=== PATIENT | male | born 1990 | race Caucasian/White ===

== ENCOUNTER 2017-10-01 10:48 | Emergency (ER) | payer MEDICAID ==
[2017-10-01 11:48] VITALS: BP 108/65
[2017-10-01] MEDS ORDERED: HYDROcod/ACETAM 5/325 MG TABLET PO STA (12:32)
[2017-10-01] MEDS ORDERED: HYDROcod/ACETAM 5/325 MG TABLET ONE (12:40)
--- NOTE | 2017-10-01 12:45 | ED Physician Documentation ---
PD HPI HEENT - Stated complaint Stated Complaint: TOOTH PX - Chief complaint Chief Complaint: Heent - History obtained from History obtained from: Patient - History of Present Illness Timing - onset: How many weeks ago (2) Timing - duration: Weeks (2) Timing - details: Gradual onset, Still present Location: Tooth Improves: Nothing Worsens: Everything Associated symptoms: Fever, Headache Similar symptoms before: Diagnosis (bad tooth) Recently seen: Not recently seen - Additional information Additional information: 26-year-old male has had a broken carious tooth for some time and over the past 2 weeks this is been bothering him more and more. Today he is beside himself in pain and unable to think. He is in tears. Review of Systems Constitutional: reports: Fever, Chills Eyes: denies: Decreased vision Ears: reports: Ear pain Nose: reports: Congestion Throat: reports: Dental pain / toothache Respiratory: reports: Cough GI: reports: Nausea. denies: Vomiting : denies: Dysuria Skin: denies: Rash Musculoskeletal: denies: Neck pain, Back pain, Extremity pain PD PAST MEDICAL HISTORY - Past Medical History Past Medical History: No - Past Surgical History Past Surgical History: No - Present Medications Home Medications: Ambulatory Orders Medication Instructions Recorded Confirmed Clindamycin HCl [Clindamycin 300MG 300 mg PO QID #28 capsule 10/01/17 CAP] HYDROcod/ACETAM 5/325 [[place] 5/325] 1 - 2 ea PO Q6H PRN #15 tablet 10/01/17 - Allergies Allergies/Adverse Reactions: Allergies Allergy/AdvReac Type Severity Reaction Status Date / Time Penicillins Allergy Unknown Verified 10/01/17 11:01 - Social History Does the pt smoke?: Yes Smoking Status: Current every day smoker Does the pt drink ETOH?: Yes Does the pt have substance abuse?: No - Immunizations Immunizations are current?: No Immunizations: TDAP >10years/unknown, Other immun not current PD ED PE NORMAL - Vitals Vital signs reviewed: Yes (Tachycardic and hypertensive) - General General: Well developed/nourished, Other (The patient is curled in the position crying and clutching the side of his face.) - HEENT HEENT: Atraumatic, PERRL, EOMI, Other (There is most of the inside of #14 missing and there is debris in the cavity hole. This is removed and the cavity is rinsed and covered with Cavitt.) - Neck Neck: Supple, no meningeal sign, No bony TTP - Cardiac Cardiac: RRR, No murmur - Respiratory Respiratory: No respiratory distress, Clear bilaterally - Abdomen Abdomen: Soft, Non tender - Back Back: No CVA TTP, No spinal TTP - Derm Derm: Normal color, Warm and dry, No rash - Extremities Extremities: No deformity, No edema - Neuro Neuro: No motor deficit, No sensory deficit Eye Opening: Spontaneous Motor: Obeys Commands Verbal: Oriented GCS Score: 15 - Psych Psych: Other (Mood is withdrawn and the affect is flat) PD ED PE EXPANDED - HEENT HEENT Visual: 1 - abscess, tenderness Results - Vitals Vitals: Oxygen O2 Source Room air PD MEDICAL DECISION MAKING - ED course Complexity details: re-evaluated patient, considered differential, d/w patient, d/w family ED course: 26-year-old male with a carious left upper molar is in so much pain that he is given pain medication here in the emergency department and is able to cooperate and with examination we are able to rinse the broken tooth and cover the defect with Cavitt. He is placed on some antibiotic and we will give him some pain medication. Departure - Departure Disposition: 01 Home, Self Care Clinical Impression: Dental abscess Condition: Stable Instructions: ED Abscess Dental Follow-Up: [facility] [Provider Group] Prescriptions: Clindamycin HCl [Clindamycin 300MG CAP] 300 mg PO QID #28 capsule HYDROcod/ACETAM 5/325 [[place] 5/325] 1 - 2 ea PO Q6H PRN #15 tablet PRN Reason: Pain Discharge Date/Time: 10/01/17 13:28
== END 2017-10-01 13:28 | disposition home or self-care (01) ==
LOC: ED 10:48
DX: K04.7 Periapical abscess without sinus (principal); K02.9 Dental caries, unspecified; F17.200 Nicotine dependence, unspecified, uncomplicated
CPT/HCPCS: 99283; A9270

== ENCOUNTER 2018-08-20 19:27 | Emergency (ER) | payer MEDICAID ==
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
[2018-08-20] MEDS ORDERED: ACETAMINOPHEN 325 MG TABLET PO STA (21:10)
[2018-08-20] MEDS ORDERED: IBUPROFEN 600 MG TABLET PO STA (21:10)
[2018-08-20 21:32] VITALS: BP 127/72
== END 2018-08-20 21:32 | disposition home or self-care (01) ==
LOC: ED 19:27
DX: S62.367A Nondisplaced fracture of neck of fifth metacarpal bone, left hand, initial encounter for closed fracture (principal); W21.11XA Struck by baseball bat, initial encounter; F17.200 Nicotine dependence, unspecified, uncomplicated
CPT/HCPCS: 29125; 99282; 99283

== ENCOUNTER 2018-11-25 15:04 | Emergency (ER) | payer MEDICAID ==
[2018-11-25 15:09] VITALS: BP 125/78
--- NOTE | 2018-11-25 15:54 | XRAY Report ---
Reason: coughing blood Procedure Date: 11/25/2018 Accession Number: [id number] / [id number] Procedure: XR - Chest 2 View X-Ray CPT Code: 95865 FULL RESULT: EXAM: CHEST RADIOGRAPHY EXAM DATE: 11/25/2018 03:41 PM. CLINICAL HISTORY: Coughing blood. COMPARISON: None. TECHNIQUE: 2 views. FINDINGS: Lungs/Pleura: No focal opacities evident. No pleural effusion. No pneumothorax. Normal volumes. Mediastinum: Heart and mediastinal contours are unremarkable. Other: None. IMPRESSION: No acute cardiopulmonary abnormalities identified. RADIA
--- NOTE | 2018-11-25 16:00 | ED Physician Documentation ---
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 denies: Chest pain / pressure Respiratory: reports: Dyspnea, Cough, Hemoptysis GI: denies: Abdominal Pain, Nausea, Vomiting, Diarrhea, Bloody / black stool Musculoskeletal: denies: Extremity swelling Endocrine: denies: Easy bruising / bleeding Immunocompromised: denies: Immunocompromised PD PAST MEDICAL HISTORY - Past Surgical History Past Surgical History: No - Present Medications Home Medications: Ambulatory Orders Medication Instructions Recorded Confirmed No Known Home Medications 08/20/18 11/25/18 - Allergies Allergies/Adverse Reactions: Allergies Allergy/AdvReac Type Severity Reaction Status Date / Time Penicillins Allergy Unknown Verified 11/25/18 15:09 - Social History Does the pt smoke?: Yes Smoking Status: Current every day smoker Does the pt drink ETOH?: Yes Does the pt have substance abuse?: Yes - Immunizations Immunizations are current?: No Immunizations: Other immun not current - POLST Patient has POLST: No PD ED PE NORMAL - Vitals Vital signs reviewed: Yes - General General: Alert and oriented X 3 - HEENT HEENT: PERRL, Moist mucous membranes, Other (no bleeding sites in mouth) - Neck Neck: Supple, no meningeal sign - Cardiac Cardiac: RRR - Respiratory Respiratory: No respiratory distress, Clear bilaterally - Abdomen Abdomen: Soft, Non tender - Derm Derm: Other (questionable track molina L AC, no petechhiae or purpura) - Extremities Extremities: No tenderness to palpate, No edema - Neuro Neuro: Alert and oriented X 3 Results - Vitals Vitals: Vital Signs - 24 hr 11/25/18 15:06 Temperature 36.6 C Heart Rate 115 H Respiratory 18 Rate Blood Pressure 125/78 O2 Saturation 100 Oxygen O2 Source Room air - Labs Labs: Laboratory Tests 0111/25/18 11/25/18 16:08 16:08 16:08 WBC 2.4 L RBC 2.58 L Hgb 9.3 L Hct 26.4 L MCV 102.2 H MCH 36.1 H MCHC 35.3 RDW 16.2 H Plt Count 7 L* MPV 7.9 Neut # (Auto) Not Reportable Lymph # (Auto) Not Reportable [place] # (Auto) Not Reportable Eos # (Auto) Not Reportable Baso # (Auto) Not Reportable Absolute Nucleated RBC Not Reportable Total Counted 100 Band Neuts % (Manual) 6 Abnorm Lymph % (Manual) 0 Nucleated RBC % Not Reportable Neutrophils # (Manual) 0.3 L* Lymphocytes # (Manual) 1.9 Monocytes # (Manual) 0.1 Eosinophils # (Manual) 0.0 Basophils # (Manual) 0.0 Differential Comment MANUAL DIFFERENTIAL Manual Slide Review Indicated WBC Morphology NORMAL APPEARANCE Platelet Estimate DECREASED (<130,000) Platelet Morphology NORMAL APPEARANCE RBC Morph Micro Appear 1+ MACROCYTOSIS Sodium 135 Potassium 3.6 Chloride 97 L Carbon Dioxide 28 Anion Gap 10.0 BUN 17 Creatinine 1.4 H Estimated GFR (MDRD) 61 L Glucose 150 H Lactic Acid 1.7 Calcium 8.6 - Rads (name of study) CXR Radiology: See rad report (NACPD) PD MEDICAL DECISION MAKING - ED course ED course: CXR neg pt tachy and appears ill concern for septic PE among other ddx ordered labs and CTPA labs notable for profound pancytopenia with ANC 0.3 and plt 7K chem notable for neg lactate and renal insuff got one set of blood cx pt did not get to to CTPA or get other blood cx before he decided to leave he wants to leave AMA I went and spoke to the pt at length he states he is homeless and needs to go take care of his dog and secure his tent and other gear and then he will come back I explained i was very very concerned about him - that his labs were critically abnormal, that all kinds of things could be wrong ranging from cancer to infection among others I explained that if he left he might bleed to , might have worsening infection or cancer, might have irreparable damage, might lose his present life style and could very certainly pt listened to me carefully he was awake alert does not seem to be intoxicated was able to verbalize my concerns and I feel he has capacity to understand my concerns he still wants to leave AMA states he will call EMS for a ride back after he takes care of things I asked if there was family I could call and talk to and he says no I begged him to stay and let me take care of him and he still insists on leaving but promises to come back so he signed out AMA and left I gave him a mask and asked him to wear it on the bus he lives at [facility] [facility] - if he has not come back by tomorrow I will request a welfare check on him I was very clear that we want to take care of him, that we are not mad, that we hope he comes back very soon - he says he will Departure - Departure Disposition: Against Medical Advice Clinical Impression: Hemoptysis, Pancytopenia, Renal insufficiency Condition: Serious Discharge Date/Time: 11/25/18 17:02
[2018-11-25] MEDS ORDERED: IOVERSOL 320 100 ML VIAL IVP ONE (16:05)
[2018-11-25 16:17] LABS: BASOPHILS % (AUTO) 0.2 %; HGB - HEMOGLOBIN 9.3 g/dL (14.0-18.0); LYMPHOCYTES % (AUTO) 80.2 %; MEAN CORPUSCULAR HEMOGLOBIN 36.1 pg (27.0-31.0); MEAN CORPUSCULAR HGB CONC 35.3 g/dL (32.0-36.0); MEAN CORPUSCULAR VOLUME 102.2 fL (80.0-94.0); MEAN PLATELET VOLUME 7.9 fL (7.4-11.4); MONOCYTES % (AUTO) 3.7 %; NEUTROPHILS % (AUTO) 14.9 %; RED BLOOD COUNT 2.58 10^6/uL (4.70-6.10); RED CELL DISTRIBUTION WIDTH 16.2 % (12.0-15.0); WHITE BLOOD COUNT 2.4 x10^3/uL (4.8-10.8)
[2018-11-25 16:41] LABS: PLT - PLATELET COUNT 7 10^3/uL (130-450)
[2018-11-25 16:42] LABS: ABNORMAL LYMPHS % (MANUAL) 0 %
[2018-11-25 16:43] LABS: CALCIUM 8.6 mg/dL (8.5-10.3); CREATININE 1.4 mg/dL (0.6-1.2)
[2018-11-25 16:49] LABS: BAND NEUTROPHILS % (MANUAL) 6 %; LYMPHOCYTES # (MANUAL) 1.9 10^3/uL (1.5-3.5); LYMPHOCYTES % (MANUAL) 80 %; MONOCYTES # (MANUAL) 0.1 10^3/uL (0.0-1.0); NEUTROPHILS # (MANUAL) 0.3 10^3/uL (1.5-6.6); NEUTROPHILS % (MANUAL) 7 %
[2018-11-25 16:50] LABS: DIFFERENTIAL COMMENT MANUAL DIFFERENTIAL; PLATELET ESTIMATE, MANUAL DECREASED (<130,000) (NORMAL); PLATELET MORPHOLOGY NORMAL APPEARANCE (NORMAL)
== END 2018-11-25 17:02 | disposition left against medical advice (07) ==
LOC: ED 15:04
DX: R04.2 Hemoptysis (principal); D61.818 Other pancytopenia; N28.9 Disorder of kidney and ureter, unspecified; R00.0 Tachycardia, unspecified; F17.200 Nicotine dependence, unspecified, uncomplicated
CPT/HCPCS: 36415; 71046; 80048; 83605; 85025; 87040; 99282; 99284

== ENCOUNTER 2018-11-28 07:58 | Outpatient (CLI) | payer MEDICAID | END 2018-11-28 07:59 | disposition critical access hospital (66) | LOC: EMS 07:58 | PROVIDERS: ATTEND Surgery | DX: R04.2 Hemoptysis (principal) | CPT/HCPCS: A0425; A0429; A0999 ==

== ENCOUNTER 2018-11-28 08:17 | Emergency (ER) | payer MEDICAID ==
[2018-11-28 08:58] LABS: BASOPHILS % (AUTO) 0.2 %; EOSINOPHILS % (AUTO) 1.2 %; LYMPHOCYTES # (AUTO) 1.3 10^3/uL (1.5-3.5); LYMPHOCYTES % (AUTO) 80.1 %; MEAN CORPUSCULAR HEMOGLOBIN 35.7 pg (27.0-31.0); MEAN CORPUSCULAR VOLUME 99.2 fL (80.0-94.0); MEAN PLATELET VOLUME 7.3 fL (7.4-11.4); MONOCYTES # (AUTO) 0.1 10^3/uL (0.0-1.0); MONOCYTES % (AUTO) 4.6 %; NEUTROPHILS % (AUTO) 13.9 %; RED BLOOD COUNT 2.24 10^6/uL (4.70-6.10); RED CELL DISTRIBUTION WIDTH 15.8 % (12.0-15.0)
[2018-11-28 09:03] LABS: NEUTROPHILS # (AUTO) 0.2 10^3/uL (1.5-6.6); PLT - PLATELET COUNT 4 10^3/uL (130-450); WHITE BLOOD COUNT 1.6 x10^3/uL (4.8-10.8)
[2018-11-28 09:09] LABS: ALBUMIN 3.2 g/dL (3.2-5.5); ALBUMIN/GLOBULIN RATIO 0.9 (1.0-2.2); BILIRUBIN,TOTAL 0.7 mg/dL (0.2-1.0); CALCIUM 8.6 mg/dL (8.5-10.3); CREATININE 0.9 mg/dL (0.6-1.2); TOTAL PROTEIN 6.8 g/dL (6.7-8.2)
[2018-11-28 09:12] LABS: INR 1.1 (0.8-1.2); PT - PROTHROMBIN TIME 12.2 secs (9.9-12.6)
[2018-11-28 09:17] LABS: PLATELET ESTIMATE, MANUAL DECREASED (<130,000) (NORMAL)
--- NOTE | 2018-11-28 09:21 | ED Physician Documentation ---
History of Present Illness - Stated complaint Stated Complaint: COUGH - Chief complaint Chief Complaint: Resp - History obtained from History obtained from: Patient - Additonal information Additional information: The patient is a homeless 28-year-old male who presents with hemoptysis. He was seen here 5 days ago and was diagnosed with pancytopenia. He refused to accept hospital admission for further workup at that time despite encouragement to do so. He returns today after having another episode of hemoptysis this morning. It was less severe this morning than it was 5 days ago. He denies shortness of breath or chest pain. He feels fatigued. His laboratory assessment from 11/23/2018, revealed a total white count of 2.4 with absolute neutrophil count of 0.4, platelet count of 7000, and hemoglobin hematocrit of 9.3 and 26.4 He has a history of IV methamphetamine use. He denies history of HIV or hepatitis. Review of Systems Constitutional: reports: Fatigue. denies: Fever Nose: denies: Congestion Throat: denies: Sore throat Cardiac: denies: Chest pain / pressure Respiratory: denies: Dyspnea, Cough GI: denies: Abdominal Pain, Nausea, Vomiting : denies: Dysuria Skin: denies: Rash Musculoskeletal: denies: Back pain, Extremity swelling Neurologic: denies: Focal weakness, Numbness, Headache PD PAST MEDICAL HISTORY - Past Medical History Respiratory: Other Endocrine/Autoimmune: None Other Past Medical History: Lung CA - Past Surgical History Past Surgical History: No - Present Medications Home Medications: Ambulatory Orders Medication Instructions Recorded Confirmed No Known Home Medications 08/20/18 11/25/18 - Allergies Allergies/Adverse Reactions: Allergies Allergy/AdvReac Type Severity Reaction Status Date / Time Penicillins Allergy Unknown Verified 11/28/18 08:25 - Social History Does the pt smoke?: Yes Smoking Status: Current every day smoker Does the pt drink ETOH?: No Does the pt have substance abuse?: Yes Substance Use and Type: Marijuana, Meth - Immunizations Immunizations are current?: No Immunizations: TDAP >10years/unknown, Other immun not current - POLST Patient has POLST: No PD ED PE NORMAL - Vitals Vital signs reviewed: Yes (Tachycardic) - General General: Alert and oriented X 3, Well developed/nourished, Other (Appears pale and ill kempt.) - HEENT HEENT: Atraumatic, Pharynx benign - Neck Neck: Supple, no meningeal sign, No adenopathy, No JVD - Cardiac Cardiac: No murmur, Other (Rapid rate, regular rhythm.) - Respiratory Respiratory: Clear bilaterally - Abdomen Abdomen: Soft, Non tender - Back Back: No CVA TTP - Derm Derm: No rash - Extremities Extremities: No edema, No calf tenderness / cord - Neuro Neuro: Alert and oriented X 3, No motor deficit, No sensory deficit Results - Vitals Vitals: Vital Signs - 24 hr 11/28/18 11/28/18 08:21 08:32 Temperature 37.0 C Heart Rate 112 H 99 Respiratory 16 18 Rate Blood Pressure 128/75 117/74 O2 Saturation 100 100 Oxygen O2 Source Room air - Labs Labs: Laboratory Tests 11/28/18 11/28/18 11/28/18 08:45 08:45 08:45 WBC 1.6 L* RBC 2.24 L Hgb 8.0 L Hct 22.2 L MCV 99.2 H MCH 35.7 H MCHC 36.0 RDW 15.8 H Plt Count 4 L* MPV 7.3 L Neut # (Auto) 0.2 L* Lymph # (Auto) 1.3 L [place] # (Auto) 0.1 Eos # (Auto) 0.0 Baso # (Auto) 0.0 Absolute Nucleated RBC 0.00 Nucleated RBC % 0.0 Manual Slide Review Indicated Platelet Estimate DECREASED (<130,000) PT 12.2 INR 1.1 Sodium 136 Potassium 3.7 Chloride 98 L Carbon Dioxide 28 Anion Gap 10.0 BUN 13 Creatinine 0.9 Estimated GFR (MDRD) 101 Glucose 118 H Calcium 8.6 Total Bilirubin 0.7 AST 14 ALT 14 Alkaline Phosphatase 62 Total Protein 6.8 Albumin 3.2 Globulin 3.6 Albumin/Globulin Ratio 0.9 L Lipase 21 L Blood Type Blood Type Recheck Antibody Screen 11/28/18 11/28/18 08:45 11:10 WBC RBC Hgb Hct MCV MCH MCHC RDW Plt Count MPV Neut # (Auto) Lymph # (Auto) [place] # (Auto) Eos # (Auto) Baso # (Auto) Absolute Nucleated RBC Nucleated RBC % Manual Slide Review Platelet Estimate PT INR Sodium Potassium Chloride Carbon Dioxide Anion Gap BUN Creatinine Estimated GFR (MDRD) Glucose Calcium Total Bilirubin AST ALT Alkaline Phosphatase Total Protein Albumin Globulin Albumin/Globulin Ratio Lipase Blood Type A NEGATIVE Blood Type Recheck A NEGATIVE Antibody Screen NEGATIVE - Rads (name of study) CXR Radiology: Prelim report reviewed, EMP read contemporaneously, See rad report (Normal 2 view chest x-ray.) PD MEDICAL DECISION MAKING - ED course Complexity details: reviewed old records, reviewed results, re-evaluated patient, considered differential, d/w patient, d/w performance consultant ED course: The patient's presentation is significant for pancytopenia with hemoglobin 8.0, hematocrit 22.2, white blood cell count 1.6, with absolute neutrophil count of 0.2, and platelet count of 4000. The underlying cause for his pancytopenia is uncertain, and requires further diagnostic workup. Platelet transfusion was ordered, but it takes 3 hours to get the platelets from blood bank in [place]. With no hematology oncology service available at this facility, arrangements were made for transfer. No beds are available at [facility] in [place] or at [facility] in [place]. I discussed his condition with Dr. Smith, hospitalist at [facility], and she is able to accept the patient in transfer. Transfer forms were completed. Departure - Departure Disposition: 02 Transfer Acute Care Hosp Clinical Impression: Pancytopenia, Hemoptysis Condition: Fair
--- NOTE | 2018-11-28 09:44 | XRAY Report ---
Reason: dyspnea Procedure Date: 11/28/2018 Accession Number: [id number] / [id number] Procedure: XR - Chest 2 View X-Ray CPT Code: 94246 FULL RESULT: EXAM: CHEST RADIOGRAPHY EXAM DATE: 11/28/2018 09:13 AM. CLINICAL HISTORY: Shortness of breath. COMPARISON: CHEST 2 VIEW 11/25/2018 3:32 PM. TECHNIQUE: 2 views. FINDINGS: Lungs/Pleura: No focal opacities evident. No pleural effusion. No pneumothorax. Normal volumes. Mediastinum: Heart and mediastinal contours are unremarkable. Other: None. IMPRESSION: Normal 2-view chest radiography. RADIA
--- NOTE | 2018-11-28 11:38 | ED Physician Documentation ---
ED Addendum - Addendum Addendum: 11/28/18 11:37 return visit chart accessed for follow up and educational purposes
[2018-11-28 13:36] VITALS: BP 121/75
== END 2018-11-28 14:12 | disposition short-term general hospital (02) ==
LOC: EDUNIT# → ED 08:17
DX: D61.818 Other pancytopenia (principal); R04.2 Hemoptysis; C34.90 Malignant neoplasm of unspecified part of unspecified bronchus or lung; F17.200 Nicotine dependence, unspecified, uncomplicated
CPT/HCPCS: 36415; 71046; 80053; 83690; 85025; 85610; 86850; 86900; 86901; 99284

== ENCOUNTER 2018-12-24 18:11 | Emergency (ER) | payer MEDICAID ==
[2018-12-24 19:08] LABS: BASOPHILS % (AUTO) 0.1 %; HGB - HEMOGLOBIN 8.7 g/dL (14.0-18.0); LYMPHOCYTES % (AUTO) 88.2 %; MEAN CORPUSCULAR HEMOGLOBIN 31.1 pg (27.0-31.0); MEAN CORPUSCULAR HGB CONC 33.9 g/dL (32.0-36.0); MEAN CORPUSCULAR VOLUME 91.8 fL (80.0-94.0); MEAN PLATELET VOLUME 7.5 fL (7.4-11.4); MONOCYTES % (AUTO) 2.1 %; NEUTROPHILS % (AUTO) 9.6 %; PLT - PLATELET COUNT 36 10^3/uL (130-450); RED CELL DISTRIBUTION WIDTH 17.4 % (12.0-15.0); WHITE BLOOD COUNT 3.1 x10^3/uL (4.8-10.8)
[2018-12-24 19:09] LABS: BILIRUBIN,URINE NEGATIVE (NEGATIVE); GLUCOSE, URINE (UA) NEGATIVE (NEGATIVE); KETONES,URINE (UA) NEGATIVE (NEGATIVE); LEUKOCYTE ESTERASE, URINE NEGATIVE (NEGATIVE); NITRITE,URINE NEGATIVE (NEGATIVE); OCCULT BLOOD,URINE NEGATIVE (NEGATIVE); PH,URINE 5.5 PH (5.0-7.5); PROTEIN,URINE NEGATIVE (NEGATIVE); UROBILINOGEN,URINE 0.2 (NORMAL) E.U./dL (NORMAL)
[2018-12-24 19:10] LABS: CLARITY,URINE CLEAR (CLEAR)
[2018-12-24 19:13] LABS: ABNORMAL LYMPHS % (MANUAL) 0 %; BAND NEUTROPHILS % (MANUAL) 0 %
[2018-12-24 19:22] LABS: ALBUMIN 2.7 g/dL (3.2-5.5); BILIRUBIN,TOTAL 0.4 mg/dL (0.2-1.0); CALCIUM 8.3 mg/dL (8.5-10.3); CREATININE 1.1 mg/dL (0.6-1.2); TOTAL PROTEIN 5.4 g/dL (6.7-8.2)
[2018-12-24 19:28] LABS: NEUTROPHILS % (MANUAL) 10 %
[2018-12-24 19:29] LABS: LYMPHOCYTES # (MANUAL) 2.8 10^3/uL (1.5-3.5); LYMPHOCYTES % (MANUAL) 89 %; NEUTROPHILS # (MANUAL) 0.3 10^3/uL (1.5-6.6); PLATELET ESTIMATE, MANUAL DECREASED (<130,000) (NORMAL); PLATELET MORPHOLOGY NORMAL APPEARANCE (NORMAL); RBC MORPHOLOGY (MULTIPLE) 1+ ANISOCYTOSIS (NORMAL)
[2018-12-24 19:30] LABS: DIFFERENTIAL COMMENT MANUAL DIFFERENTIAL
--- NOTE | 2018-12-24 20:18 | ED Physician Documentation ---
History of Present Illness - Stated complaint Stated Complaint: VOMITING,SYCOPE - Chief complaint Chief Complaint: General - History obtained from History obtained from: Patient, Friend - History of Present Illness Timing: Today Pain level max: 10 Pain level now: 10 Improved by: nothing Worsened by: movement Associated symptoms: generalized pain, nausea, vomiting, generalized weakness and fatigue - Additonal information Additional information: patient has a variety of c/o. He was transferred from this ED to [facility] 11/28/18 and left AMA yesterday from [facility]. He says he did this because he had to get "affairs in order"; when I ask him to elaborate, he repeatedly offers the same phrase, and adds that he "lives out of a tent". It is not clear to me why he left AMA. He says he has not been able to get any of his medications (friend says "there were about eight of them") because they cost too much. He says "everything is worse" and that he was told to go to the nearest emergency department so he could be transferred back to [facility] at any time he felt he wanted to return. He c/o nausea, vomiting, diarrhea. Says "unable to keep anything down". C/O BLE pain and abdominal pain, "like my legs are being crushed". c/o fatigue. Friend says he has "been in and out of consciousness all day". Review of Systems Constitutional: reports: Myalgias, Fatigue. denies: Fever Cardiac: reports: Reviewed and negative Respiratory: reports: Reviewed and negative GI: reports: Abdominal Pain, Abdominal Swelling, Nausea, Vomiting, Diarrhea : denies: Dysuria, Frequency Skin: denies: Rash Musculoskeletal: reports: Extremity pain Neurologic: reports: Generalized weakness. denies: Focal weakness, Numbness PD PAST MEDICAL HISTORY - Past Medical History Respiratory: Other Endocrine/Autoimmune: None Other Past Medical History: Aplastic anemia, bone cancer - Past Surgical History Past Surgical History: No - Present Medications Home Medications: Ambulatory Orders Medication Instructions Recorded Confirmed No Known Home Medications 08/20/18 11/25/18 - Allergies Allergies/Adverse Reactions: Allergies Allergy/AdvReac Type Severity Reaction Status Date / Time Penicillins Allergy Unknown Verified 11/28/18 08:25 - Social History Does the pt smoke?: Yes Smoking Status: Current every day smoker Does the pt drink ETOH?: No Does the pt have substance abuse?: Yes - Immunizations Immunizations are current?: No Immunizations: TDAP >10years/unknown, Other immun not current - POLST Patient has POLST: No PD ED PE NORMAL - Vitals Vital signs reviewed: Yes - General General: Alert and oriented X 3, No acute distress, Well developed/nourished - HEENT HEENT: Moist mucous membranes - Neck Neck: Supple, no meningeal sign - Cardiac Cardiac: RRR, No murmur - Respiratory Respiratory: No respiratory distress, Clear bilaterally - Abdomen Abdomen: Soft, Non tender, Non distended - Derm Derm: Normal color, Warm and dry - Extremities Extremities: No edema - Neuro Neuro: Alert and oriented X 3, commissioner of internal revenue 2-12 intact, No motor deficit, No sensory deficit Eye Opening: Spontaneous Motor: Obeys Commands Verbal: Oriented GCS Score: 15 Results - Vitals Vitals: Vital Signs - 24 hr 12/24/18 12/24/18 12/24/18 18:21 18:38 20:51 Temperature 35.4 C L Heart Rate 113 H 91 109 H Respiratory 24 18 20 Rate Blood Pressure 121/108 H 116/65 115/57 L O2 Saturation 97 95 97 12/24/18 12/24/18 12/24/18 21:15 23:05 23:40 Temperature 37.1 C 36.3 C L Heart Rate 105 H 102 H 95 Respiratory 18 18 16 Rate Blood Pressure 119/54 L 122/85 H 123/57 L O2 Saturation 95 96 96 Oxygen O2 Source Room air - Labs Labs: Laboratory Tests 12/24/18 12/24/18 12/24/18 18:49 18:49 18:49 WBC 3.1 L RBC 2.80 L Hgb 8.7 L Hct 25.7 L MCV 91.8 MCH 31.1 H MCHC 33.9 RDW 17.4 H Plt Count 36 L MPV 7.5 Neut # (Auto) [employer] Lymph # (Auto) Not Reportable [place] # (Auto) Not Reportable Eos # (Auto) Not Reportable Baso # (Auto) Not Reportable Absolute Nucleated RBC Not Reportable Total Counted 100 Band Neuts % (Manual) 0 Abnorm Lymph % (Manual) 0 Nucleated RBC % Not Reportable Neutrophils # (Manual) 0.3 L* Lymphocytes # (Manual) 2.8 Monocytes # (Manual) 0.0 Eosinophils # (Manual) 0.0 Basophils # (Manual) 0.0 Differential Comment MANUAL DIFFERENTIAL Manual Slide Review Indicated WBC Morphology NORMAL APPEARANCE Platelet Estimate DECREASED (<130,000) Platelet Morphology NORMAL APPEARANCE RBC Morph Micro Appear 1+ ANISOCYTOSIS Sodium 141 Potassium 4.0 Chloride 100 L Carbon Dioxide 30 Anion Gap 11.0 BUN 32 H Creatinine 1.1 Estimated GFR (MDRD) 80 L Glucose 157 H Calcium 8.3 L Total Bilirubin 0.4 AST 33 ALT 55 Alkaline Phosphatase 37 L Total Protein 5.4 L Albumin 2.7 L Globulin 2.7 Albumin/Globulin Ratio 1.0 Lipase 24 Urine Color LT. YELLOW Urine Clarity CLEAR Urine pH 5.5 Ur Specific [place] 1.020 Urine Protein NEGATIVE Urine Glucose (UA) NEGATIVE Urine Ketones NEGATIVE Urine Occult Blood NEGATIVE Urine Nitrite NEGATIVE Urine Bilirubin NEGATIVE Urine Urobilinogen 0.2 (NORMAL) Ur Leukocyte Esterase NEGATIVE Ur Microscopic Review NOT INDICATED Urine Culture Comments NOT INDICATED PD MEDICAL DECISION MAKING - ED course Complexity details: reviewed old records, reviewed results, re-evaluated patient, considered differential, d/w patient ED course: After repeated attempts to contact [facility], we received a call back approximately 90 minutes after DISABILITY RATER first left a message requesting call back for discussion of possible transfer. I then d/w transfer center coordinator who said we will be contacted after he d/w hospitalist at [facility]. Subsequently [facility] transfer center called back and informed us that they have no beds available. I relayed this information to the patient. He was eating pizza at the time of reevaluation. He says he will go to [facility] directly by private vehicle; he has friends with him who will drive him (given morphine in ED and he tells me that he understands he is not to drive because this medication was given). I offered to contact other hospitals to discuss admission (such as [facility] or [facility]); he declines this and insists he wants to leave and will have friend drive him to [facility] ED. I did not recommend this plan to him. Departure - Departure Disposition: 01 Home, Self Care Clinical Impression: Pancytopenia, Generalized muscle ache Condition: Good Instructions: Neutropenia, Thrombocytopenia, ED Anemia Type Not Specified Comments: Please return immediately at any time you wish to be reevaluated. Discharge Date/Time: 12/24/18 23:45
[2018-12-24] MEDS ORDERED: SODIUM CHLORIDE 0.9% 1,000 ML IV STA (20:39)
[2018-12-24] MEDS ORDERED: ONDANSETRON 4 MG/2 ML VIAL IVP STA (20:39)
[2018-12-24] MEDS ORDERED: MORPHINE 2 MG/ML CARPUJECT IVP STA ×2 (22:20→23:00)
[2018-12-24 23:41] VITALS: BP 123/57
== END 2018-12-24 23:45 | disposition home or self-care (01) ==
LOC: ED 18:11
DX: D61.818 Other pancytopenia (principal); M79.18 Myalgia, other site; Z85.830 Personal history of malignant neoplasm of bone; T50.906A Underdosing of unspecified drugs, medicaments and biological substances, initial encounter; Z91.120 Patient's intentional underdosing of medication regimen due to financial hardship; F17.200 Nicotine dependence, unspecified, uncomplicated
CPT/HCPCS: 36415; 80053; 81001; 81003; 83690; 85025; 87086; 96374; 96376; 99284

== ENCOUNTER 2020-09-10 05:06 | Outpatient (CLI) | payer SELFPAY | END 2020-09-10 05:07 | disposition critical access hospital (66) | LOC: EMS 05:06 | PROVIDERS: ATTEND Surgery | DX: R50.9 Fever, unspecified (principal); R51.9 Headache, unspecified | CPT/HCPCS: A0425; A0429 ==

== ENCOUNTER 2020-09-10 05:25 | Emergency (ER) | payer SELFPAY ==
[2020-09-10 05:42] VITALS: BP 106/72
[2020-09-10] MEDS ORDERED: SODIUM CHLORIDE 0.9% 1,000 ML IV STA (05:58)
--- NOTE | 2020-09-10 06:03 | ED Physician Documentation ---
History of Present Illness - Stated complaint Stated Complaint: CHAUDHARI/ HEMATURIA - Chief complaint Chief Complaint: Fever - History obtained from History obtained from: Patient - Additonal information Additional information: The patient presents with complaints of a headache. He says that this started about 2 hours ago. When asked where the pain is located he says that it is throughout his head. He denies vision changes. He has had no ringing in his ears. He reports a history of aplastic anemia and says that he gets these headaches because of the anemia. Additionally, he has had chronic intermittent issues with blood in his urine and has noticed this again recently. [facility] and then subsequently was getting treatment in [place]. However, he left there and return to this area. He has been here for several months. He has not been taking any medications. Review of Systems Constitutional: reports: Fever, Fatigue Eyes: denies: Loss of vision, Decreased vision, Photophobia Ears: denies: Loss of hearing, Tinnitus/ringing Cardiac: denies: Chest pain / pressure, Palpitations, Pedal edema, Calf pain Respiratory: denies: Dyspnea, Cough GI: denies: Abdominal Pain, Abdominal Swelling, Nausea, Vomiting : reports: Hematuria Neurologic: reports: Headache PD PAST MEDICAL HISTORY - Past Medical History Respiratory: Other Endocrine/Autoimmune: None - Past Surgical History Past Surgical History: No - Present Medications Home Medications: Ambulatory Orders Medication Instructions Recorded Confirmed No Known Home Medications 08/20/18 11/25/18 - Allergies Allergies/Adverse Reactions: Allergies Allergy/AdvReac Type Severity Reaction Status Date / Time Penicillins Allergy Unknown Verified 11/28/18 08:25 - Social History Does the pt smoke?: Yes Smoking Status: Current every day smoker Does the pt drink ETOH?: No Does the pt have substance abuse?: Yes Substance Use and Type: Marijuana - Immunizations Immunizations are current?: No Immunizations: TDAP >10years/unknown, Other immun not current - POLST Patient has POLST: No PD ED PE NORMAL - Vitals Vital signs reviewed: Yes - General General: No acute distress - HEENT HEENT: PERRL - Neck Neck: Supple, no meningeal sign - Cardiac Cardiac: RRR, No murmur, No gallop, No rub - Respiratory Respiratory: No respiratory distress, Clear bilaterally - Abdomen Abdomen: Normal bowel sounds, Soft, Non tender, Non distended - Derm Derm: Warm and dry - Extremities Extremities: No deformity Results - Vitals Vitals: Vital Signs - 24 hr 09/10/20 09/10/20 05:37 05:42 Temperature 38.1 C H 38.1 C H Heart Rate 107 H 107 H Respiratory 18 18 Rate Blood Pressure 106/72 106/72 O2 Saturation 100 100 Oxygen O2 Source Room air PD MEDICAL DECISION MAKING - ED course ED course: Shortly after having arrived in the emergency room, he reported to nursing staff that he wanted to department AGAINST MEDICAL ADVICE. I subsequently went to the room and had an extended discussion with him. I expressed my concern given his fever, history of aplastic anemia and headache. I strongly encouraged him to stay in order for us to do a work-up, initiate therapy and arrange an appropriate disposition for him. I explained the risk of a missed or erroneous diagnosis, potentially life or limb threatening condition and concern for his safety. He insists that "this is taking too long." And adamantly refuses to stay. He acknowledges the risks discussed above and expresses a clear understanding of them. He signed an AMA form. It was explained to him that he is always welcome to return if he changes his mind and would like to pursue this work-up. Departure - Departure Disposition: Against Medical Advice Clinical Impression: Fever, Headache, Aplastic anemia Condition: Serious Discharge Date/Time: 09/10/20 06:20
[2020-09-10] MEDS ORDERED: ACETAMINOPHEN 325 MG TABLET PO STA (06:06)
== END 2020-09-10 06:20 | disposition left against medical advice (07) ==
LOC: EDUNIT# → ED 05:25
DX: R50.9 Fever, unspecified (principal); R51.9 Headache, unspecified; D61.9 Aplastic anemia, unspecified; F17.200 Nicotine dependence, unspecified, uncomplicated; Z53.29 Procedure and treatment not carried out because of patient's decision for other reasons
CPT/HCPCS: 80053; 83605; 83690; 85025; 85610; 85730; 87040; 99284

== ENCOUNTER 2021-10-29 21:22 | Outpatient (CLI) | payer SELFPAY | END 2021-10-29 21:23 | disposition critical access hospital (66) | LOC: EMS 21:22 | DX: S01.01XA Laceration without foreign body of scalp, initial encounter (principal); S01.511A Laceration without foreign body of lip, initial encounter; M25.522 Pain in left elbow; V03.10XA Pedestrian on foot injured in collision with car, pick-up truck or van in traffic accident, initial encounter; Y93.01 Activity, walking, marching and hiking; Y92.414 Local residential or business street as the place of occurrence of the external cause | CPT/HCPCS: A0425; A0429 ==

== ENCOUNTER 2021-10-29 21:44 | Emergency (ER) | payer SELFPAY ==
[2021-10-29 21:54] VITALS: BP 103/73
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
== END 2021-10-29 22:11 | disposition left against medical advice (07) ==
LOC: ED 21:44
DX: S01.01XA Laceration without foreign body of scalp, initial encounter (principal); S51.012A Laceration without foreign body of left elbow, initial encounter; V09.20XA Pedestrian injured in traffic accident involving unspecified motor vehicles, initial encounter; Y93.01 Activity, walking, marching and hiking; Y92.410 Unspecified street and highway as the place of occurrence of the external cause; F17.200 Nicotine dependence, unspecified, uncomplicated; Z53.29 Procedure and treatment not carried out because of patient's decision for other reasons
CPT/HCPCS: 99282; 99283

== ENCOUNTER 2022-07-24 13:22 | Emergency (ER) | payer MEDICAID ==
[2022-07-24 14:24] VITALS: BP 110/68
[2022-07-24] MEDS ORDERED: CLINDAMYCIN 150 MG CAPSULE PO STA (15:20)
--- NOTE | 2022-07-24 15:24 | ED Physician Documentation ---
History of Present Illness - Stated complaint Stated Complaint: ARM/HAND PX - Chief complaint Chief Complaint: Wound - History obtained from History obtained from: Patient - History of Present Illness Timing: How many weeks ago Pain level max: 0 Pain level now: 0 - Additonal information Additional information: Patient is a 31-year-old male who noted over the past several weeks he has developed sores on the right arm. Concerned about cellulitis. No drainage. Not itchy. Nothing makes it better or worse. No fevers. No chills. No swelling. Review of Systems Constitutional: denies: Fever Respiratory: denies: Cough GI: denies: Vomiting : denies: Dysuria Musculoskeletal: denies: Neck pain Neurologic: denies: Headache PD PAST MEDICAL HISTORY - Past Medical History Past Medical History: Yes Respiratory: Other Endocrine/Autoimmune: None - Past Surgical History Past Surgical History: No - Present Medications Home Medications: Ambulatory Orders Medication Instructions Recorded Confirmed clindamycin HCL [Cleocin HCl] 300 mg PO Q6H #40 cap 07/24/22 - Allergies Allergies/Adverse Reactions: Allergies Allergy/AdvReac Type Severity Reaction Status Date / Time Penicillins Allergy Unknown Verified 10/29/21 21:46 cillins Allergy Unknown Uncoded 07/24/22 13:31 - Social History Does the pt smoke?: Yes Smoking Status: Current every day smoker Does the pt drink ETOH?: No Does the pt have substance abuse?: Yes - Immunizations Immunizations are current?: No Immunizations: TDAP >10years/unknown, Other immun not current - POLST Patient has POLST: No PD ED PE NORMAL - Vitals Vital signs reviewed: Yes - General General: Alert and oriented X 3, No acute distress - HEENT HEENT: Moist mucous membranes - Neck Neck: Supple, no meningeal sign - Cardiac Cardiac: RRR, Strong equal pulses - Respiratory Respiratory: No respiratory distress, Clear bilaterally - Derm Derm: Warm and dry, Other (1 to 2 cm circular patches with scaling and redness surrounding. No drainage. 4 small patches on the forearm. no induration. no fluctuance) - Extremities Extremities: Other - Neuro Neuro: Alert and oriented X 3 Results - Vitals Vitals: Vital Signs - 24 hr 07/24/22 07/24/22 13:26 14:23 Temperature 36.6 C 37 C Heart Rate 87 100 Respiratory 16 14 Rate Blood Pressure 118/67 110/68 O2 Saturation 98 98 Oxygen O2 Source Room air PD MEDICAL DECISION MAKING - ED course Complexity details: considered differential, d/w patient ED course: 31-year-old male presents to the emergency department with what appears to be small areas of scaling to the right forearm, they appear to be secondarily infected. Will place on antibiotics for home. No abscesses. Possible psoriasis? Patient is well-appearing, nontoxic. Afebrile. Patient counseled regarding signs and symptoms for which I believe and urgent re-evaluation would be necessary. Patient with good understanding of and agreement to plan and is comfortable going home at this time This document was made in part using voice recognition software. While efforts are made to proofread this document, sound alike and grammatical errors may occur. Departure - Departure Disposition: 01 Home, Self Care Clinical Impression: Cellulitis Qualifiers: Site of cellulitis: extremity Site of cellulitis of extremity: upper extremity Laterality: right Qualified Code(s): L03.113 - Cellulitis of right upper limb Condition: Good Instructions: ED Infec Skin Cellulitis Follow-Up: your,doctor in 1 week [Other] Prescriptions: clindamycin HCL [Cleocin HCl] 300 mg PO Q6H #40 cap Comments: Please follow-up with your doctor for further care. Take all antibiotics until gone. Return if you worsen. Your [facility] were sent to [facility] [place] Discharge Date/Time: 07/24/22 15:37
== END 2022-07-24 15:37 | disposition home or self-care (01) ==
LOC: ED 13:22
DX: L03.113 Cellulitis of right upper limb (principal); F17.200 Nicotine dependence, unspecified, uncomplicated
CPT/HCPCS: 99282

== ENCOUNTER 2022-08-07 10:08 | Outpatient (CLI) | payer MEDICAID | END 2022-08-07 10:09 | disposition EMS.NT | LOC: EMS 10:08 | DX: Z03.89 Encounter for observation for other suspected diseases and conditions ruled out (principal) ==

== ENCOUNTER 2022-11-14 02:07 | Outpatient (CLI) | payer MEDICAID | END 2022-11-14 02:08 | disposition critical access hospital (66) | LOC: EMS 02:07 | DX: R25.2 Cramp and spasm (principal); M79.605 Pain in left leg; M79.604 Pain in right leg | CPT/HCPCS: A0425; A0429; A0999 ==

== ENCOUNTER 2022-11-14 02:20 | Emergency (ER) | payer MEDICAID ==
[2022-11-14] MEDS ORDERED: KETOROLAC 30 MG/ML VIAL IM STA (02:45)
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
[2022-11-14 02:59] LABS: BASOPHILS % (AUTO) 0.3 %; EOSINOPHILS # (AUTO) 0.1 10^3/uL (0.0-0.7); EOSINOPHILS % (AUTO) 1.5 %; HCT - HEMATOCRIT 38.2 % (42.0-52.0); HGB - HEMOGLOBIN 12.3 g/dL (14.0-18.0); LYMPHOCYTES % (AUTO) 21.2 %; MEAN CORPUSCULAR HEMOGLOBIN 31.5 pg (27.0-31.0); MEAN CORPUSCULAR HGB CONC 32.2 g/dL (32.0-36.0); MEAN CORPUSCULAR VOLUME 97.9 fL (80.0-94.0); MEAN PLATELET VOLUME 7.9 fL (7.4-11.4); MONOCYTES # (AUTO) 0.8 10^3/uL (0.0-1.0); MONOCYTES % (AUTO) 7.9 %; NEUTROPHILS # (AUTO) 6.6 10^3/uL (1.5-6.6); PLT - PLATELET COUNT 209 10^3/uL (130-450); RED CELL DISTRIBUTION WIDTH 13.5 % (12.0-15.0); WHITE BLOOD COUNT 9.6 x10^3/uL (4.8-10.8)
[2022-11-14 03:07] LABS: MUDS CUTOFF CONCENTRATIONS CUTOFF CONC BELOW:
[2022-11-14 03:10] LABS: ALBUMIN 3.8 g/dL (3.2-5.5); ALBUMIN/GLOBULIN RATIO 1.1 (1.0-2.2); BILIRUBIN,TOTAL 0.4 mg/dL (0.2-1.0); CALCIUM 9.4 mg/dL (8.5-10.3); CREATININE 0.8 mg/dL (0.6-1.2); TOTAL PROTEIN 7.3 g/dL (6.7-8.2)
[2022-11-14 03:37] VITALS: BP 123/76
[2022-11-14 03:46] LABS: COCAINE SCREEN URINE NEGATIVE (NEGATIVE); THC CANNABINOID SCREEN, URINE POSITIVE (NEGATIVE)
[2022-11-14 03:47] LABS: AMPHETAMINE SCREEN,URINE POSITIVE (NEGATIVE); BARBITURATE SCREEN,UR NEGATIVE (NEGATIVE); BENZODIAZEPINES SCREEN, URINE NEGATIVE (NEGATIVE); METHADONE SCREEN, URINE NEGATIVE (NEGATIVE); METHAMPHETAMINES SCREEN, URINE POSITIVE (NEGATIVE); OPIATE SCREEN, URINE NEGATIVE (NEGATIVE); OXYCODONE SCREEN, URINE NEGATIVE (NEGATIVE); PROPOXYPHENE SCREEN, URINE NEGATIVE (NEGATIVE); TRICYCLIC ANTIDEPRESSANT,URINE NEGATIVE (NEGATIVE)
== END 2022-11-14 03:53 | disposition home or self-care (01) ==
LOC: EDUNIT# → ED 02:20
DX: R25.2 Cramp and spasm (principal); F17.200 Nicotine dependence, unspecified, uncomplicated
CPT/HCPCS: 36415; 80053; 80306; 83690; 85025; 96372; 99283; 99284

== ENCOUNTER 2022-11-27 03:03 | Outpatient (CLI) | payer MEDICAID | END 2022-11-27 03:04 | disposition critical access hospital (66) | LOC: EMS 03:03 | DX: R53.1 Weakness (principal); G89.29 Other chronic pain; R29.6 Repeated falls | CPT/HCPCS: A0425; A0429; A0999 ==

== ENCOUNTER 2022-11-27 03:22 | Emergency (ER) | payer MEDICAID ==
[2022-11-27 03:37] VITALS: BP 122/81
--- NOTE | 2022-11-27 03:38 | ED Physician Documentation ---
History of Present Illness - Stated complaint Stated Complaint: ARM / LEG PX - History obtained from History obtained from: Patient, EMS - Additonal information Additional information: 32 undomiciled man with history of drug abuse presents stating that he is anemic. Also with chronic extremity pains. Patient was seen November 14 for same symptoms and had hemoglobin above 12 at that time on lab work. Note that EMS state he initially called them stating he is out of his dilaudid and in pain. Review of Systems Constitutional: denies: Fever Cardiac: denies: Chest pain / pressure Respiratory: denies: Dyspnea Neurologic: reports: Other (no dizziness) PD PAST MEDICAL HISTORY - Past Medical History Cardiovascular: None Respiratory: Other Neuro: None Endocrine/Autoimmune: None GI: None : Other HEENT: None Psych: None Musculoskeletal: Other Derm: None - Past Surgical History Past Surgical History: No - Present Medications Home Medications: Ambulatory Orders Medication Instructions Recorded Confirmed HYDROmorphone [Dilaudid] 2 mg PO Q6H 11/14/22 11/27/22 - Allergies Allergies/Adverse Reactions: Allergies Allergy/AdvReac Type Severity Reaction Status Date / Time Penicillins Allergy Unknown Verified 11/27/22 03:29 cillins Allergy Unknown Uncoded 11/27/22 03:29 - Social History Does the pt smoke?: Yes Smoking Status: Current every day smoker Does the pt drink ETOH?: No Does the pt have substance abuse?: Yes - Immunizations Immunizations are current?: No Immunizations: TDAP >10years/unknown, Other immun not current - POLST Patient has POLST: No PD ED PE NORMAL - Vitals Vital signs reviewed: Yes - General General: Alert and oriented X 3, No acute distress, Well developed/nourished, Other (disheveled appearing) - HEENT HEENT: Atraumatic, PERRL, EOMI, Moist mucous membranes - Neck Neck: Supple, no meningeal sign - Cardiac Cardiac: RRR - Respiratory Respiratory: No respiratory distress, Clear bilaterally - Derm Derm: Normal color, Warm and dry Results - Vitals Vitals: Vital Signs - 24 hr 11/27/22 03:31 Temperature -12.9 C L Heart Rate 92 Respiratory 16 Rate Blood Pressure 122/81 H O2 Saturation 98 Oxygen O2 Source Room air PD Medical Decision Making - ED course ED course: 32-year-old man with history of drug abuse presents for medical screening exam. Chronic complaint of extremity pain but no acute issues tonight. Advised him to follow-up with primary care provider and to return to the emergency department if he would like resources to help with drug abuse. Return precautions given. Referral enclosed for a primary care provider. Departure - Departure Disposition: 01 Home, Self Care Clinical Impression: Encounter for medical screening examination Condition: Stable Instructions: ED Drug Abuse General Follow-Up: Odilon Hammond MD [Provider Admit Priv/Credential] - Comments: You were seen in the emergency department for medical screening evaluation. You had bloodwork last week with good blood levels and your vital signs and exam uncovered no emergent issues today. Please follow-up with a primary care provider (referral enclosed) and return to the emergency department if you have any new or worsening symptoms or other concerns.
== END 2022-11-27 03:53 | disposition home or self-care (01) ==
LOC: EDUNIT# → ED 03:22
DX: Z13.89 Encounter for screening for other disorder (principal); M79.603 Pain in arm, unspecified; M79.606 Pain in leg, unspecified; G89.29 Other chronic pain; F17.200 Nicotine dependence, unspecified, uncomplicated; Z59.02 Unsheltered homelessness
CPT/HCPCS: 99282; 99283

== ENCOUNTER 2024-06-06 22:10 | Outpatient (CLI) | payer OTHER, MEDICAID | END 2024-06-06 23:59 | disposition critical access hospital (66) | LOC: EMS 22:10 | DX: R41.82 Altered mental status, unspecified (principal); R52 Pain, unspecified; R11.0 Nausea; F10.239 Alcohol dependence with withdrawal, unspecified; F11.23 Opioid dependence with withdrawal | CPT/HCPCS: A0425; A0429 ==

== ENCOUNTER 2024-06-06 22:15 | Emergency (ER) | payer MEDICAID, OTHER ==
--- NOTE | 2024-06-06 22:20 | ED Physician Documentation ---
PD HPI ALTERED MENTAL STATUS - Stated complaint Stated Complaint: AMS - History obtained from History obtained from: Patient, EMS, Police - Additional information Additional information: HPI from EMS as well as railroad police officer accompanying patient to ED. Patient brought [facility] ED from [facility] where has been incarcerated since approximately 24 hours [employer]. Patient reportedly uses fentanyl and drinks alcohol on daily basis and given medications this evening for withdrawal including hydroxyzine and clonidine. EMS was called tonight due to AMS, reportedly patient found unconscious in his cell. Patient is awake but drowsy for EMS as well as on ED a rrival. FSBS 130 by EMS. Patient contributes minimally to HPI/ROS due to AMS. Per railroad police officer (in ED at bedside), patient was AAOx3 when booked last night. Review of Systems Unable to obtain: AMS PD PAST MEDICAL HISTORY - Past Medical History Cardiovascular: None Respiratory: Other Neuro: None Endocrine/Autoimmune: None GI: None : Other HEENT: None Psych: None Musculoskeletal: Other Derm: None - Past Surgical History Past Surgical History: No - Present Medications Home Medications: Ambulatory Orders Medication Instructions Recorded Confirmed cloNIDine [Catapres] 0.1 mg PO QID 06/06/24 06/06/24 hydrOXYzine HCL [Hydroxyzine HCl] 25 mg PO QID 06/06/24 06/06/24 - Allergies Allergies/Adverse Reactions: Allergies Allergy/AdvReac Type Severity Reaction Status Date / Time Penicillins Allergy Unknown Verified 06/06/24 22:55 cillins Allergy Unknown Uncoded 06/06/24 22:55 - Social History Does the pt smoke?: Yes Smoking Status: Current every day smoker Does the pt drink ETOH?: No Does the pt have substance abuse?: Yes - Immunizations Immunizations are current?: No Immunizations: TDAP >10years/unknown, Other immun not current - POLST Patient has POLST: No PD ED PE NORMAL - Vitals Vital signs reviewed: Yes - General General: No acute distress, Well developed/nourished, Other (drowsy but awakens to verbal stimulus. makes eye contact, follows simple commands though sometimes needs repeat prompting) - HEENT HEENT: Moist mucous membranes - Neck Neck: Supple, no meningeal sign - Cardiac Cardiac: RRR, No murmur - Respiratory Respiratory: No respiratory distress, Clear bilaterally - Abdomen Abdomen: Soft, Non tender - Neuro Neuro: Alert and oriented X 3, manager life sciences 2-12 intact Eye Opening: To Voice Motor: Obeys Commands Verbal: Oriented GCS Score: 14 Results - Vitals Vitals: Oxygen O2 Source Room air - Labs Labs: Laboratory Tests 06/06/24 06/06/24 06/06/24 22:21 22:21 22:21 WBC 6.8 RBC 4.11 L Hgb 13.3 L Hct 38.7 L MCV 94.2 H MCH 32.4 H MCHC 34.4 RDW 13.9 Plt Count 249 MPV 8.0 Neut # (Auto) 4.2 Lymph # (Auto) 1.9 [place] # (Auto) 0.6 Eos # (Auto) 0.1 Baso # (Auto) 0.0 Absolute Nucleated RBC 0.00 Nucleated RBC % 0.0 Sodium 137 Potassium 3.7 Chloride 102 Carbon Dioxide 28 Anion Gap 7.0 BUN 14 Creatinine 0.7 Estimated GFR (MDRD) 131 Glucose 131 H Calcium 9.4 Total Bilirubin 0.5 AST 12 ALT 10 Alkaline Phosphatase 85 Ammonia 27.4 Total Protein 7.0 Albumin 4.3 Globulin 2.7 Albumin/Globulin Ratio 1.6 Lipase 23 Urine Color Urine Clarity Urine pH Ur Specific [place] Urine Protein Urine Glucose (UA) Urine Ketones Urine Occult Blood Urine Nitrite Urine Bilirubin Urine Urobilinogen Ur Leukocyte Esterase Ur Microscopic Review Urine Culture Comments 06/06/24 23:05 WBC RBC Hgb Hct MCV MCH MCHC RDW Plt Count MPV Neut # (Auto) Lymph # (Auto) [place] # (Auto) Eos # (Auto) Baso # (Auto) Absolute Nucleated RBC Nucleated RBC % Sodium Potassium Chloride Carbon Dioxide Anion Gap BUN Creatinine Estimated GFR (MDRD) Glucose Calcium Total Bilirubin AST ALT Alkaline Phosphatase Ammonia Total Protein Albumin Globulin Albumin/Globulin Ratio Lipase Urine Color LIGHT YELLOW Urine Clarity CLEAR Urine pH 6.5 Ur Specific [place] <=1.005 Urine Protein NEGATIVE Urine Glucose (UA) NEGATIVE Urine Ketones 15 H Urine Occult Blood NEGATIVE Urine Nitrite NEGATIVE Urine Bilirubin NEGATIVE Urine Urobilinogen 0.2 (NORMAL) Ur Leukocyte Esterase NEGATIVE Ur Microscopic Review NOT INDICATED Urine Culture Comments NOT INDICATED - Rads (name of study) CTH Relevant Findings:: Prelim report reviewed, See rad report PD Medical Decision Making - ED course Complexity details: reviewed results, re-evaluated patient, considered differential, d/w patient ED course: Unremarkable CBC including normal WBC. Normal ER abdominal panel except insignificant finding of glucose 131. Normal LFTs and normal ammonia level. Normal UA except insignificant finding of 15 ketones. Normal CTH. On reevaluation, patient is awake and alert, GCS 15. He has no medical c/o. Cleared for d/c back to police custody. Departure - Departure Disposition: 01 Home, Self Care Clinical Impression: Altered mental status Condition: Good Instructions: ED Altered Loc Comments: There were no concerning nor diagnostic abnormalities on tonight's tests, including the blood tests and the CT scan of your head. The cause of your altered mental status earlier tonight is not apparent at this time. Forms: PCP List Discharge Date/Time: 06/07/24 01:17
[2024-06-06] MEDS: SODIUM CHLORIDE 0.9% 1,000 ML IV STA (22:25)
[2024-06-06 22:28] LABS: BASOPHILS % (AUTO) 0.4 %; EOSINOPHILS # (AUTO) 0.1 10^3/uL (0.0-0.7); EOSINOPHILS % (AUTO) 0.9 %; HCT - HEMATOCRIT 38.7 % (42.0-52.0); HGB - HEMOGLOBIN 13.3 g/dL (14.0-18.0); LYMPHOCYTES # (AUTO) 1.9 10^3/uL (1.5-3.5); LYMPHOCYTES % (AUTO) 27.6 %; MEAN CORPUSCULAR HEMOGLOBIN 32.4 pg (27.0-31.0); MEAN CORPUSCULAR HGB CONC 34.4 g/dL (32.0-36.0); MEAN CORPUSCULAR VOLUME 94.2 fL (80.0-94.0); MONOCYTES # (AUTO) 0.6 10^3/uL (0.0-1.0); MONOCYTES % (AUTO) 9.2 %; NEUTROPHILS # (AUTO) 4.2 10^3/uL (1.5-6.6); NEUTROPHILS % (AUTO) 61.8 %; PLT - PLATELET COUNT 249 10^3/uL (130-450); RED BLOOD COUNT 4.11 10^6/uL (4.70-6.10); RED CELL DISTRIBUTION WIDTH 13.9 % (12.0-15.0); WHITE BLOOD COUNT 6.8 x10^3/uL (4.8-10.8)
[2024-06-06 22:39] VITALS: O2SAT 99
[2024-06-06 22:45] LABS: ALBUMIN 4.3 g/dL (3.2-5.5); ALBUMIN/GLOBULIN RATIO 1.6 (1.0-2.2); BILIRUBIN,TOTAL 0.5 mg/dL (0.2-1.0); CALCIUM 9.4 mg/dL (8.5-10.3); CREATININE 0.7 mg/dL (0.6-1.3); POTASSIUM 3.7 mmol/L (3.5-4.5)
[2024-06-06 23:19] LABS: BILIRUBIN,URINE NEGATIVE (NEGATIVE); GLUCOSE, URINE (UA) NEGATIVE (NEGATIVE); KETONES,URINE (UA) 15 mg/dL (NEGATIVE); LEUKOCYTE ESTERASE, URINE NEGATIVE (NEGATIVE); NITRITE,URINE NEGATIVE (NEGATIVE); OCCULT BLOOD,URINE NEGATIVE (NEGATIVE); PH,URINE 6.5 PH (5.0-7.5); PROTEIN,URINE NEGATIVE (NEGATIVE); UROBILINOGEN,URINE 0.2 (NORMAL) E.U./dL (NORMAL)
[2024-06-06 23:23] LABS: CLARITY,URINE CLEAR (CLEAR)
--- NOTE | 2024-06-07 00:43 | CT Report ---
PROCEDURE: Head WO INDICATIONS: AMS TECHNIQUE: Noncontrast 4.5 mm thick angled axial sections acquired from the foramen magnum to the vertex. For r adiation dose reduction, the following was used: automated exposure control, adjustment of mA and/or kV according to patient size. COMPARISON: None. FINDINGS: Image quality: Excellent. CSF spaces: Basal cisterns are patent. No extra-axial fluid collections. Ventricles are normal in size and shape. Brain: No midline shift. No intracranial masses or hemorrhage. Maciel-white matter interface is norm al. Skull and face: Calvarium and visualized facial bones are intact, without suspicious lesions. Sinuses: Visualized sinuses and mastoids are clear. IMPRESSION: No acute intracranial pathology. Reviewed by: Tolu Malik MD on 06/07/2024 12:42 AM PDT Approved by: Tolu Malik MD on 06/07/2024 12:42 AM PDT Station ID: [id number]
[2024-06-07] MEDS: KETOROLAC 15 MG/ML VIAL IVP STA (01:04)
[2024-06-07 01:27] VITALS: BP 124/68
== END 2024-06-07 01:17 | disposition home or self-care (01) ==
LOC: EDUNIT# → ED 22:15
DX: R41.82 Altered mental status, unspecified (principal); F17.210 Nicotine dependence, cigarettes, uncomplicated
CPT/HCPCS: 36415; 80053; 81001; 81003; 82140; 83690; 85025; 87086; 96361; 96374; 99284